=== PATIENT | female | born 1995 | race Caucasian/White ===

== ENCOUNTER 2018-12-08 09:01 | Emergency (ER) | payer OTHER ==
[~2018-12-08] VITALS: Ht 149.9 cm; Wt 77.1 kg
[~2018-12-08 09:01] MED LIST: INTESTINEX680 MG PO; ZANTAC150 MG PO
[2018-12-08] MEDS ORDERED: ANAPROX (09:10)
[2018-12-08] MEDS ORDERED: KETOROLAC TROME10 MG PO (13:18)
== END 2018-12-08 13:53 | disposition home or self-care (01) ==
LOC: ER 09:01
DX: N94.0 Mittelschmerz (principal); R10.2 Pelvic and perineal pain

== ENCOUNTER → 2019-01-20 | Emergency (ER) | payer OTHER ==
[~2019-01-20] VITALS: Ht 149.9 cm; Wt 72.6 kg
[~2019-01-20] MED LIST changes: +ANAPROX; +KETOROLAC TROME10 MG PO
== END | disposition home or self-care (01) ==
LOC: ER 18:29
DX: K29.70 Gastritis, unspecified, without bleeding (principal); R11.2 Nausea with vomiting, unspecified; R10.2 Pelvic and perineal pain

== ENCOUNTER 2019-02-23 19:25 | Emergency (ER) | payer OTHER ==
[~2019-02-23] VITALS: Ht 149.9 cm; Wt 72.6 kg
== END 2019-02-23 21:39 | disposition home or self-care (01) ==
LOC: ER 19:25
DX: B33.8 Other specified viral diseases (principal); B96.0 Mycoplasma pneumoniae [M. pneumoniae] as the cause of diseases classified elsewhere

== ENCOUNTER 2019-03-22 11:08 | Emergency (ER) | payer OTHER ==
[~2019-03-22] VITALS: Ht 149.9 cm; Wt 75.7 kg
[2019-03-22] MEDS ORDERED: PROMETRIUM200 MG PO (11:17)
[2019-03-22] MEDS ORDERED: PRENATAL + DHA1 EAC1 PO (11:17)
== END 2019-03-22 14:53 | disposition home or self-care (01) ==
LOC: ER 11:08
DX: O26.891 Other specified pregnancy related conditions, first trimester (principal); R10.2 Pelvic and perineal pain

== ENCOUNTER → 2019-06-24 | Outpatient (CLI) | payer OTHER ==
[~2019-06-24] MED LIST changes: +PRENATAL + DHA1 EAC1 PO; +PROMETRIUM200 MG PO
== END | disposition home or self-care (01) ==
LOC: PRENATAL 12:51
DX: O35.3XX1 Maternal care for (suspected) damage to fetus from viral disease in mother, fetus 1 (principal); O35.0XX1 Maternal care for (suspected) central nervous system malformation in fetus, fetus 1

== ENCOUNTER → 2019-07-22 | Outpatient (CLI) | payer OTHER | END | disposition home or self-care (01) | LOC: PRENATAL 07-15 13:00 | DX: O26.843 Uterine size-date discrepancy, third trimester (principal); O99.213 Obesity complicating pregnancy, third trimester; O35.0XX1 Maternal care for (suspected) central nervous system malformation in fetus, fetus 1 ==

== ENCOUNTER 2019-11-03 06:13 | Inpatient (IN) | payer OTHER ==
[~2019-11-03] VITALS: Ht 149.9 cm; Wt 86.2 kg
== END 2019-11-06 13:31 | disposition home or self-care (01) | DRG 788 ==
LOC: OB/GYN 06:13 → LDR 06:13 → OB/GYN 11-04 02:10
PROVIDERS: ADMIT Obstetrics & Gynecology; ATTEND Obstetrics & Gynecology
PROC: 3E033VJ Introduction of Other Hormone into Peripheral Vein, Percutaneous Approach (ICD-10-PCS; 2019-11-03)
PROC: 4A1HXCZ Monitoring of Products of Conception, Cardiac Rate, External Approach (ICD-10-PCS; 2019-11-03)
PROC: 10D00Z1 Extraction of Products of Conception, Low, Open Approach (ICD-10-PCS; principal; 2019-11-03 21:00)
DX: O61.0 Failed medical induction of labor (principal); Z3A.38 38 weeks gestation of pregnancy; Z37.0 Single live birth; Z20.828 Contact with and (suspected) exposure to other viral communicable diseases

== ENCOUNTER 2025-03-13 10:58 | Emergency (ER) | payer OTHER ==
[~2025-03-13] VITALS: Ht 149.9 cm; Wt 65.3 kg
[2025-03-13 11:13] VITALS: BP 124/84; O2SAT 98
[2025-03-13] MEDS ORDERED: DEXAMETHASONE SODIUM PHOSPHATE 4 MG/ML VIAL IM ONE (11:30)
[2025-03-13] MEDS ORDERED: DEXAMETHASONE SODIUM PHOSPHATE 4 MG/ML VIAL ONE (12:20)
== END 2025-03-13 12:43 | disposition home or self-care (01) ==
LOC: ER 10:58
DX: J02.9 Acute pharyngitis, unspecified (principal); R51.9 Headache, unspecified

== ENCOUNTER 2025-03-23 12:22 | Emergency (ER) | payer OTHER ==
[~2025-03-23] VITALS: Ht 149.9 cm; Wt 64.4 kg
[2025-03-23 12:39] VITALS: BP 141/90; O2SAT 97
[2025-03-23] MEDS ORDERED: CEFTRIAXONE SODIUM 1,000 MG VIAL IV ONE (13:15)
[2025-03-23] MEDS ORDERED: FAMOTIDINE/PF 20 MG/2 ML VIAL IV ONE (13:15)
[2025-03-23] MEDS ORDERED: 0.9 % SODIUM CHLORIDE 1,000 ML IV SCH (13:15)
[2025-03-23 17:23] LABS: BASO % 0.4 % (0.1-1.2); EOS # 0.12 (0.04-0.54); EOS % 0.9 % (0.7-7.0); LYMPH # 2.55 (1.18-3.74); LYMPH % 19.4 % (19.3-53.1); MEAN PLATELET VOLUME 11.60 fl (9.4-12.4); MONO # 0.80 (0.24-0.82); MONO % 6.1 % (4.7-12.5); NEUT # 9.58 (1.56-6.13); NEUT % 73.0 % (34.0-71.1); RED CELL DISTRIBUTION WIDTH 18.7 % (11.6-14.4)
[2025-03-23 17:42] LABS: ERYTHROCYTE SEDIMENTATION RATE 25 mm/hr (0-20)
[2025-03-23 17:52] LABS: URINE APPEARANCE Clear; URINE BILIRRUBIN Negative (NEGATIVE); URINE BLOOD Negative; URINE COLOR Yellow; URINE GLUCOSE Negative (NEGATIVE); URINE KETONE Trace (NEGATIVE); URINE LEUKOCYTE Negative; URINE NITRATE Negative; URINE PROTEIN Negative (NEGATIVE); URINE UROBILINOGEN 1.0 E.U./dl
[2025-03-23 17:56] LABS: URINE BACTERIA 148.6 uL (0.0-1933); URINE EPITHELIAL CELLS 7.0 uL (0.0-38.8); URINE RBC 9.3 uL (0.0-20.8); URINE WBC 5.8 uL (0.0-23.2)
[2025-03-23 18:00] LABS: URINE CAST 0.14 uL (0.0-1.40)
[2025-03-23 18:03] LABS: ALT/SGPT 21 U/L (12-78); AST/SGOT 12 U/L (15-37); BILIRUBIN TOTAL 0.71 mg/dL (0.3-1.2); BUN CREA RATIO 23 (7.0-25.0); CREATININE SERUM 0.56 mg/dL (0.55-1.02); GFR 127.99; GLOBULINA 3.6 G/DL (2.4-3.5); GLUCOSE FASTING 83 mg/dL (65-100); OSMOLALITY SERUM 284 MOSM/KG (275-295)
[2025-03-23] MEDS ORDERED: AZITHROMYCIN500 MG PO (18:21)
[2025-03-23] MEDS ORDERED: PEPCID AC20 MG PO (18:21)
== END 2025-03-23 18:36 | disposition home or self-care (01) ==
LOC: ER 12:22
PROVIDERS: Student in an Organized Health Care Education/Training Program
DX: J02.8 Acute pharyngitis due to other specified organisms (principal); N39.0 Urinary tract infection, site not specified; B96.89 Other specified bacterial agents as the cause of diseases classified elsewhere